=== PATIENT | female | born 1960 | race Caucasian/White ===

== ENCOUNTER → 2016-09-29 | Outpatient (CLI) | payer OTHER | END | disposition home or self-care (01) | LOC: RAD 16:05 | PROVIDERS: ATTEND Family Medicine | DX: K40.90 Unilateral inguinal hernia, without obstruction or gangrene, not specified as recurrent (principal) | CPT/HCPCS: 76857 ==

== ENCOUNTER → 2017-10-19 | Outpatient (CLI) | payer OTHER | END | disposition home or self-care (01) | LOC: CFH 09:32 | PROVIDERS: ATTEND Internal Medicine | DX: R22.1 Localized swelling, mass and lump, neck (principal); I12.9 Hypertensive chronic kidney disease with stage 1 through stage 4 chronic kidney disease, or unspecified chronic kidney disease; N18.9 Chronic kidney disease, unspecified; E78.1 Pure hyperglyceridemia; G43.909 Migraine, unspecified, not intractable, without status migrainosus; M06.9 Rheumatoid arthritis, unspecified; E03.9 Hypothyroidism, unspecified; J30.9 Allergic rhinitis, unspecified; Z79.890 Hormone replacement therapy | CPT/HCPCS: 76536 ==

== ENCOUNTER → 2018-04-12 | Outpatient (CLI) | payer OTHER | END | disposition home or self-care (01) | LOC: CFH 09:06 | PROVIDERS: ATTEND Obstetrics & Gynecology Female Pelvic Medicine and Reconstructive Surgery | DX: Z12.31 Encounter for screening mammogram for malignant neoplasm of breast (principal) | CPT/HCPCS: 77067 ==

== ENCOUNTER 2019-02-13 12:08 | Outpatient (CLI) | payer OTHER ==
[2019-02-13 13:19] LABS: BASOPHILS # (AUTO) 0.01 x10^3/uL (0-0.1); BASOPHILS % (AUTO) 0 % (0-1); EOSINOPHILS # (AUTO) 0.32 x10^3/uL (0-0.4); EOSINOPHILS % (AUTO) 3 % (1-7); LYMPHOCYTES # (AUTO) 1.84 x10^3/uL (1-3.4); LYMPHOCYTES % (AUTO) 19 % (22-44); MD NO; MEAN CORPUSCULAR HEMOGLOBIN 29.6 pg (27.0-34.8); MEAN CORPUSCULAR HGB CONC 32.8 g/dL (32.4-35.8); MEAN CORPUSCULAR VOLUME 90.3 fL (80-100); MEAN PLATELET VOLUME 7.4 fL (7.4-10.4); MONOCYTES # (AUTO) 0.83 x10^3/uL (0.2-0.8); MONOCYTES % (AUTO) 9 % (2-9); NEUTROPHILS % (AUTO) 69 % (42-75); PLATELET COUNT 377 x10^3/uL (130-400); RED BLOOD COUNT 4.77 x10^6/uL (3.82-5.3); RED CELL DISTRIBUTION WIDTH 13.7 % (9.6-15.2)
[2019-02-13] MEDS ORDERED: [UNRECOGNIZED DRUG - OTHER] PO (13:32)
[2019-02-13] MEDS ORDERED: MULT-658 PO (13:32)
[2019-02-13] MEDS ORDERED: FENOFIBRIC ACID PO (13:32)
[2019-02-13] MEDS ORDERED: biotin PO (13:32)
[2019-02-13] MEDS ORDERED: rizatriptan PO (13:32)
[2019-02-13] MEDS ORDERED: vitamin D3 PO (13:32)
[2019-02-13] MEDS ORDERED: [UNRECOGNIZED DRUG - OTHER] PO (13:32)
[2019-02-13] MEDS ORDERED: LEVO25TA2 PO (13:32)
[2019-02-13] MEDS ORDERED: hydroxyzine PO (13:32)
[2019-02-13] MEDS ORDERED: CLON0.5T PO (13:32)
[2019-02-13] MEDS ORDERED: ondansetron PO (13:32)
[2019-02-13] MEDS ORDERED: ZOLP6.252 PO (13:32)
[2019-02-13] MEDS ORDERED: [UNRECOGNIZED DRUG - OTHER] TP (13:32)
[2019-02-13 13:35] LABS: INTERNATIONAL NORMALIZED RATIO 0.98 (0.93-1.1); PROTHROMBIN TIME 10.3 Seconds (9.6-11.5)
[2019-02-13 13:45] LABS: ALANINE AMINOTRANSFERASE 23 U/L (12-78); ALBUMIN 3.8 g/dL (3.4-5.0); ANION GAP 7 mmol/L (5-15); CALCIUM 9.2 mg/dL (8.5-10.1); CHLORIDE 103 mmol/L (98-107); CREATININE 1.15 mg/dL (0.55-1.02)
[2019-02-13 13:47] LABS: ALKALINE PHOSPHATASE 42 U/L (45-117); BILIRUBIN,TOTAL 0.2 mg/dL (0.2-1.0); TOTAL PROTEIN 6.9 g/dL (6.4-8.2)
== END 2019-02-13 23:59 | disposition home or self-care (01) ==
LOC: STAR 12:08
PROVIDERS: ATTEND Orthopaedic Surgery
DX: Z01.818 Encounter for other preprocedural examination (principal); M17.11 Unilateral primary osteoarthritis, right knee; I44.0 Atrioventricular block, first degree
CPT/HCPCS: 36415; 80053; 85025; 85610; 85730; 87081; 87147; 93005

== ENCOUNTER 2019-02-23 20:29 | Inpatient (IN) | payer OTHER ==
[~2019-02-23] VITALS: Ht 157.5 cm; Wt 80.0 kg
[~2019-02-23 20:29] MED LIST: CLON0.5T PO; FENOFIBRIC ACID PO; LEVO25TA2 PO; LITHOBID ER PO; MULT-658 PO; ZOLP6.252 PO; [UNRECOGNIZED DRUG - OTHER] PO; [UNRECOGNIZED DRUG - OTHER] PO; [UNRECOGNIZED DRUG - OTHER] TP; biotin PO; hydroxyzine PO; ondansetron PO; rizatriptan PO; vitamin D3 PO
[2019-02-23] MEDS ORDERED: NALOXONE 0.4 MG/ML, 1ML IVPush ONE (21:00)
[2019-02-23] MEDS ORDERED: SODIUM CHLORIDE FLUSH 10ML SYR IVF ONE (21:00)
[2019-02-23 21:10] LABS: BASOPHILS # (AUTO) 0.01 x10^3/uL (0-0.1); BASOPHILS % (AUTO) 0 % (0-1); EOSINOPHILS # (AUTO) 0.17 x10^3/uL (0-0.4); EOSINOPHILS % (AUTO) 2 % (1-7); LYMPHOCYTES # (AUTO) 0.95 x10^3/uL (1-3.4); LYMPHOCYTES % (AUTO) 9 % (22-44); MD NO; MEAN CORPUSCULAR HEMOGLOBIN 29.4 pg (27.0-34.8); MEAN CORPUSCULAR HGB CONC 32.7 g/dL (32.4-35.8); MEAN CORPUSCULAR VOLUME 90.1 fL (80-100); MEAN PLATELET VOLUME 7.3 fL (7.4-10.4); MONOCYTES # (AUTO) 0.93 x10^3/uL (0.2-0.8); MONOCYTES % (AUTO) 9 % (2-9); NEUTROPHILS # (AUTO) 8.14 x10^3/uL (1.8-6.8); NEUTROPHILS % (AUTO) 80 % (42-75); PLATELET COUNT 266 x10^3/uL (130-400); RED CELL DISTRIBUTION WIDTH 13.6 % (9.6-15.2)
--- NOTE | 2019-02-23 21:19 | NUR ---
janneth dan contact info: [phone]
[2019-02-23 21:23] LABS: ALANINE AMINOTRANSFERASE 16 U/L (12-78); ALBUMIN 2.9 g/dL (3.4-5.0); ANION GAP 2 mmol/L (5-15); CALCIUM 9.3 mg/dL (8.5-10.1); CHLORIDE 102 mmol/L (98-107); CREATININE 1.15 mg/dL (0.55-1.02)
[2019-02-23 21:24] LABS: SALICYLATE LEVEL < 1.7 mg/dL (2.8-20.0)
[2019-02-23 21:27] LABS: ALKALINE PHOSPHATASE 45 U/L (45-117); BILIRUBIN,TOTAL 0.4 mg/dL (0.2-1.0); TOTAL PROTEIN 6.9 g/dL (6.4-8.2)
[2019-02-23] MEDS ORDERED: SODIUM CHLORIDE 0.9%, 500ML IVBOLUS ONE (21:30)
[2019-02-23] MEDS ORDERED: SODIUM CHLORIDE 0.9% 1,000ML IVBOLUS ONE (21:30)
[2019-02-23] MEDS ORDERED: ERTAPENEM 1 GM in SODIUM CHLORIDE 0.9% 50 ML IV SCH (21:30)
[2019-02-23] MEDS ORDERED: ACETAMINOPHEN 500 MG TABLET PO ONE (21:30)
[2019-02-23] MEDS ORDERED: VANCOMYCIN PER PHARMACY MC ONE (21:30)
[2019-02-23] MEDS ORDERED: VANCOMYCIN 1,600 MG in SODIUM CHLORIDE 0.9% 250 ML IV ONE (21:30)
--- NOTE | 2019-02-23 21:33 | NUR ---
piv placed from which 2nd set of blood cultures obtained ivf started immediately to obtain ua then abx
--- NOTE | 2019-02-23 21:41 | NUR ---
straight cath obtained-sent for sample
[2019-02-23] MEDS ORDERED: ACETAMINOPHEN 500 MG TABLET ONE (21:42)
--- NOTE | 2019-02-23 21:50 | NUR ---
Medicated per emar (IV abx and tylenol)
[2019-02-23 21:54] LABS: MICROSCOPIC AUTO
[2019-02-23 21:55] LABS: CULTURE INDICATED? NO
--- NOTE | 2019-02-23 22:04 | NUR ---
Report to Lissette CASTREJON To xray/ultrasound/ct. 1st liter NS infusing as well as Vancomycin
[2019-02-23 22:09] LABS: AMPHETAMINE SCREEN, URINE Negative (Negative); BARBITURATE SCREEN, URINE Negative (Negative); BENZODIAZEPINE SCREEN, URINE Negative (Negative); CANNABINOID SCREEN, URINE Negative (Negative); COCAINE SCREEN, URINE Negative (Negative); METHADONE SCREEN, URINE Negative (Negative); OPIATE SCREEN, URINE Positive (Negative)
--- NOTE | 2019-02-23 22:26 | NUR ---
BACK FROM RADIOLOGY- TRANSPORTED TO FLOOR BY EMT PINK SPEPSIS SHEET ON BED
--- NOTE | 2019-02-23 22:30 | NUR ---
1ST LITER NS STILL INFUSING AT TIME OF TRANSFER (75% DONE)
[2019-02-23 22:53] VITALS: BP 107/44
[2019-02-23] MEDS ORDERED: VANCOMYCIN PER PHARMACY MC PRN (23:30)
[2019-02-23] MEDS: LACTATED RINGERS 1,000 ML IV SCH (23:30)
[2019-02-23] MEDS ORDERED: PHARMACY MAY ADJ FOR RENAL FX MC PRN (23:30)
[2019-02-23] MEDS ORDERED: PHARMACOKINETIC MONITORING MC PRN (23:30)
[2019-02-23] MEDS ORDERED: LABETALOL 5 MG/ML SYR. (IV ONLY) IVPush PRN (23:30)
[2019-02-23] MEDS ORDERED: ONDANSETRON 2MG/ML, 2ML IVPush PRN (23:30)
[2019-02-23] MEDS: HEPARIN 5,000 UNITS/ML, 1ML SQ SCH (23:30)
[2019-02-24 00:26] VITALS: BP 107/44
[2019-02-24 00:42] VITALS: BP 99/53
[2019-02-24 01:05] VITALS: BP 102/52
[2019-02-24 05:15] LABS: BASOPHILS # (AUTO) 0.01 x10^3/uL (0-0.1); BASOPHILS % (AUTO) 0 % (0-1); EOSINOPHILS # (AUTO) 0.21 x10^3/uL (0-0.4); EOSINOPHILS % (AUTO) 3 % (1-7); LYMPHOCYTES # (AUTO) 1.09 x10^3/uL (1-3.4); LYMPHOCYTES % (AUTO) 13 % (22-44); MD NO; MEAN CORPUSCULAR HGB CONC 33.9 g/dL (32.4-35.8); MEAN CORPUSCULAR VOLUME 88.6 fL (80-100); MEAN PLATELET VOLUME 7.5 fL (7.4-10.4); MONOCYTES # (AUTO) 0.91 x10^3/uL (0.2-0.8); MONOCYTES % (AUTO) 11 % (2-9); NEUTROPHILS # (AUTO) 6.08 x10^3/uL (1.8-6.8); NEUTROPHILS % (AUTO) 73 % (42-75); PLATELET COUNT 239 x10^3/uL (130-400); RED BLOOD COUNT 3.08 x10^6/uL (3.82-5.3); RED CELL DISTRIBUTION WIDTH 13.6 % (9.6-15.2)
[2019-02-24 05:16] LABS: ANION GAP 1 mmol/L (5-15); CALCIUM 8.1 mg/dL (8.5-10.1); CHLORIDE 108 mmol/L (98-107); CREATININE 1.01 mg/dL (0.55-1.02)
[2019-02-24] MEDS: HYDROmorphone 2 MG/ML, 1ML IV PRN ×2 (05:34→11:00)
[2019-02-24 07:09] VITALS: BP 130/83
[2019-02-24] MEDS: LACTATED RINGERS 1,000 ML IV SCH ×2 (07:30→12:17)
[2019-02-24] MEDS: HEPARIN 5,000 UNITS/ML, 1ML SQ SCH (07:30)
[2019-02-24] MEDS ORDERED: HYDROmorphone 4MG TABLET PO PRN (08:30)
[2019-02-24] MEDS ORDERED: LEVOTHYROXINE 25 MCG TABLET HOMEMEDPO SCH (09:00)
[2019-02-24] MEDS ORDERED: SENNA/DOCUSATE TABLET PO SCH (09:00)
[2019-02-24] MEDS ORDERED: DILAUDID 4 MG HOMEMEDPO PRN ×2 (09:00→11:00)
[2019-02-24] MEDS ORDERED: LITHIUM 300 MG HOMEMEDPO SCH ×3 (09:00→21:00)
[2019-02-24] MEDS ORDERED: ASPIRIN 81 MG EC TABLET HOMEMEDPO SCH (09:00)
[2019-02-24] MEDS: ACETAMINOPHEN 325 MG TABLET PO PRN ×2 (09:31→09:33)
[2019-02-24 12:02] VITALS: BP 120/73
[2019-02-24 13:31] VITALS: BP 145/78
[2019-02-24] MEDS ORDERED: CEPH-368 PO (14:00)
[2019-02-24] MEDS ORDERED: SULF1TAB24 PO (14:01)
[2019-02-24] MEDS ORDERED: ASPI81TA45 PO (14:22)
[2019-02-24] MEDS ORDERED: QUETIAPINE 150 MG HOMEMEDPO SCH ×2 (21:00)
[2019-02-24] MEDS ORDERED: LITHIUM CARBONATE 300 MG CAPSULE PO SCH (21:00)
[2019-02-24] MEDS ORDERED: QUETIAPINE 100MG TABLET PO SCH (21:00)
[2019-02-24] MEDS ORDERED: ERTAPENEM 1 GM in SODIUM CHLORIDE 0.9% 50 ML IV SCH (22:00)
[2019-02-25] MEDS ORDERED: LEVOTHYROXINE 25 MCG TABLET HOMEMEDPO SCH (06:00)
[2019-02-25] MEDS ORDERED: SYNTHROID 25 MCG HOMEMEDPO SCH (06:00)
[2019-02-25] MEDS ORDERED: ASPIRIN 81 MG EC TABLET HOMEMEDPO SCH (06:00)
[2019-02-25] MEDS ORDERED: LITHIUM CARBONATE 300 MG TABLET.ER PO SCH (08:00)
[2019-02-25] MEDS ORDERED: ASPIRIN 81MG EC TABLET HOMEMEDPO SCH (09:00)
[2019-02-25] MEDS ORDERED: LITHIUM 300 MG HOMEMEDPO SCH (09:00)
== END 2019-02-24 15:06 | disposition home or self-care (01) | DRG 871 ==
LOC: ED 21:51 → EDIP 22:34 → 3N 22:45 → 4NE 02-24 11:21 → DCLOUNGE 02-24 15:00
PROVIDERS: ADMIT Family Medicine; ATTEND Family Medicine
DX: A41.9 Sepsis, unspecified organism (principal); G92 Toxic encephalopathy; L03.115 Cellulitis of right lower limb; N17.9 Acute kidney failure, unspecified; D64.9 Anemia, unspecified; E66.9 Obesity, unspecified; F31.9 Bipolar disorder, unspecified; M06.9 Rheumatoid arthritis, unspecified; M17.11 Unilateral primary osteoarthritis, right knee; R65.20 Severe sepsis without septic shock; Z96.659 Presence of unspecified artificial knee joint; F29 Unspecified psychosis not due to a substance or known physiological condition; F41.9 Anxiety disorder, unspecified; Z79.82 Long term (current) use of aspirin; Z79.899 Other long term (current) drug therapy; Z68.32 Body mass index [BMI] 32.0-32.9, adult
CPT/HCPCS: 36415; 71045; 80048; 80053; 80178; 80307; 81001; 82140; 83605; 83735; 84145; 85025; 87040; 99291; G0378; J1170; J1335; J3370; J7030; J7040; J7050; J7120

== ENCOUNTER 2019-06-12 10:56 | Outpatient (CLI) | payer OTHER ==
[~2019-06-12 10:56] MED LIST changes: +ASPI81TA45 PO; +CEPH-368 PO; +SULF1TAB24 PO
== END 2019-06-12 23:59 | disposition home or self-care (01) ==
LOC: CFH 10:56
PROVIDERS: ATTEND Obstetrics & Gynecology Female Pelvic Medicine and Reconstructive Surgery
DX: Z12.31 Encounter for screening mammogram for malignant neoplasm of breast (principal); N64.89 Other specified disorders of breast
CPT/HCPCS: 77067

== ENCOUNTER 2020-06-16 09:27 | Outpatient (CLI) | payer OTHER | END 2020-06-16 23:59 | disposition home or self-care (01) | LOC: CFH 09:27 | PROVIDERS: ATTEND Obstetrics & Gynecology Female Pelvic Medicine and Reconstructive Surgery | DX: Z12.31 Encounter for screening mammogram for malignant neoplasm of breast (principal) | CPT/HCPCS: 77067 ==